=== PATIENT | female | born 1970 | race Asian ===

== ENCOUNTER 2017-02-01 14:32 | Emergency (ER) | payer OTHER ==
[~2017-02-01] VITALS: Ht 154.9 cm; Wt 56.0 kg
[~2017-02-01 14:32] MED LIST: MULT-7 PO; OMEG-135 PO
[2017-02-01 14:37] VITALS: Ht 154.9 cm; Wt 56.0 kg
[2017-02-01] MEDS ORDERED: DICLOFENAC SODIUM 37.5 MG/ML VIAL IV STA (16:33)
[2017-02-01 16:54] LABS: ADD SCAN DIFF NO
[2017-02-01 17:15] LABS: BASOPHILS % 0.4 % (0.0-2.0); EOSINOPHILS # 0.1 10^3/ul (0.0-0.5); HEMATOCRIT 40.3 % (37.0-47.0); HEMOGLOBIN 13.3 g/dl (12.0-16.0); LYMPHOCYTES # 2.8 10^3/ul (0.8-2.9); LYMPHOCYTES % 29.9 % (15.0-51.0); MEAN CORPUSCULAR HEMOGLOBIN 29.4 pg (29.0-33.0); MEAN CORPUSCULAR VOLUME 89.2 fl (82.0-101.0); MEAN PLATELET VOLUME 8.7 fl (7.4-10.4); MONOCYTE # 0.5 10^3/ul (0.3-0.9); MONOCYTES % 4.9 % (0.0-11.0); NEUTROPHIL # 5.9 10^3/ul (1.6-7.5); NEUTROPHILS % 63.6 % (39.0-77.0); PLATELET COUNT 353 10^3/UL (140-415); RED BLOOD COUNT 4.52 10^6/ul (4.20-5.40); RED CELL DISTRIBUTION WIDTH 12.4 % (11.5-14.5); WHITE BLOOD COUNT 9.3 10^3/ul (4.8-10.8)
[2017-02-01 17:18] LABS: CHLORIDE 102 mmol/L (97-110); POTASSIUM 3.6 mmol/L (3.5-5.1); SODIUM 142 mmol/L (135-144)
[2017-02-01 17:20] LABS: CREATININE 0.57 mg/dl (0.44-1.00)
[2017-02-01 17:21] LABS: ANION GAP 18 (8-16); BLOOD UREA NITROGEN 11 mg/dl (7-20); CALCIUM 9.3 mg/dl (8.4-10.2); CARBON DIOXIDE 26 mmol/L (21-31); GLUCOSE 122 mg/dl (70-220)
[2017-02-01] MEDS ORDERED: SOD CHLORIDE 0.9% 100 ML ONE (17:32)
[2017-02-01] MEDS ORDERED: IOHEXOL 100 ML ONE (17:32)
[2017-02-01 17:39] LABS: TROPONIN-I < 0.012 ng/ml (0.00-0.12)
--- NOTE | 2017-02-01 18:19 | RADRPT ---
PROCEDURE: CT Pulmonary Angiogram. CLINICAL INDICATION: Chest pain and shortness of breath. TECHNIQUE: CT pulmonary angiogram and a CT scan of the chest with contrast was performed. The pat ient was scanned following the uncomplicated intravenous administration of 100 cc of Omnipaque-350 i ntravenous contrast. 2-D coronal reformatted images were obtained from the axial source images. In addition, 3-D post processing was performed. Total exam DLP is 201.60 mGy-cm. CTDIvol is 35.21 mG y. One or more of the following dose reduction techniques were used: Automated exposure control, ad justment of the mA and/or kV according to patient size, use of iterative reconstruction technique. COMPARISON: None available. FINDINGS: The pulmonary arteries are normal with no filling defect or lack of enhancement to suggest pulmonary artery embolism. The lungs are clear. There is no pulmonary airspace or interstitial disease. There is no pulmonary nodule or mass lesion. There is no pneumothorax. There is no mediastinal or hilar lymphadenopathy or mass. There is no pleural effusion. There is no pericardial effusion. The thoracic aorta is normal with no aneurysm or dissection. The left vertebral artery appears to ar ise directly from the aortic arch, a normal variant. Images through the upper abdomen demonstrate normal visualized portions of the liver, spleen, and ad renals. The osseous structures are normal with no fracture or lytic lesion. IMPRESSION: 1. Normal CT pulmonary angiogram with no evidence of pulmonary artery embolism. 2. The left vertebral artery may arise arising from the aortic arch, a normal variant. 3. Otherwise unremarkable CT angiogram of the pulmonary arteries and CT scan of the chest. RPTAT: QQ .Horace Borja MD, Date Time Electronically viewed and signed by .Horace Borja MD, MD on 02/01/2017 18:18 .R/
[2017-02-01] MEDS ORDERED: IBUP800T25 PO (18:46)
--- NOTE | 2017-02-01 18:52 | ERD ---
ER Documentation Chief Complaint Date/Time DATE: 02/01/17 TIME: 18:48 Chief Complaint LT SIDE RIB CAGE PAIN RADIATING TO BACK X 2 WEEKS , SOB , DIZZINESS TODAY HPI This is a 46-year-old female complains of 3 years of left rib pain. She complains of pain located at the left costosternal margin around rib 5 or 6 that radiates around to the left costovertebral area. 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 She says the pain is worse when she raises her moves her left arm. Pain is described as sharp worse with movement as stated and better with rest. She states this morning she woke up and get out of bed she became suddenly short of breath for about 60 seconds. She states she had no chest pressure no other chest discomfort than stated above. No diaphoresis she has some slight palpitations no near syncope no headache no numbness or weakness. She says she was not having a panic attack at that time. She has had no shortness of breath since ROS All systems reviewed and are negative except as per history of present illness. Medications Home Meds Active Scripts Ibuprofen* (Motrin*) 800 Mg Tab, 800 MG PO Q6H Y for PAIN AND OR ELEVATED TEMP, #30 TAB Prov:MATY PEARSON DO 02/01/17 Reported Medications Fish Oil* (Fish Oil*) 1,000 Mg Cap, 1000 MG PO DAILY, CAP 06/28/14 Multivitamins (Daily Multiple Vitamin) 1 Tab Tablet, 1 TAB PO DAILY, TAB 06/28/14 Allergies Allergies: Coded Allergies: No Known Allergy (Unverified , 06/28/14) PMhx/Soc History of Surgery: Yes () Anesthesia Reaction: No Hx Neurological Disorder: No Hx Respiratory Disorders: No Hx Cardiac Disorders: No Hx Psychiatric Problems: No Hx Miscellaneous Medical Probl: No Hx Alcohol Use: No Hx Substance Use: No Hx Tobacco Use: No Smoking Status: Never smoker FmHx Family History: No coronary disease Physical Exam Vitals Vital Signs Date Time Temp Pulse Resp B/P Pulse Ox O2 Delivery O2 Flow Rate FiO2 02/01/17 16:30 98.1 79 18 124/60 100 Room Air 02/01/17 14:37 98.1 102 18 137/85 98 Physical Exam Const: Well-developed, well-nourished Head: Atraumatic, normocephalic Eyes: Normal Conjunctiva, PERRLA, EOMI, normal sclera, no nystagmus ENT: Normal External Ears, Nose and Mouth, moist mucus membranes. Neck: Full range of motion. No meningismus, no lymphadenopathy. Resp: Clear to auscultation bilaterally, no wheezing, rhonchi, rales Cardio: Regular rate and rhythm, no murmurs, S1 S2 present, reproducible chest tenderness at the costo sternal margin rib 5 and 6 anteriorly and posteriorly. Pain is reproducible to palpation in the right and range of motion. Pain is also reproducible by pushing on the posterior rib cage in the left will induce pain in the left anterior rib cage. Abd: Soft, non tender x 4, non distended. Normal bowel sounds, no guarding or rebound, no pulsitile abdominal masses or bruits Skin: No petechiae or rashes, no ecchymosis , no maculopapular rash Back: No midline or flank tenderness Ext: No cyanosis, or edema, FROM x 4, normal inspection, neurovascularly intact x 4 Neur: Awake and alert, STR 5/5 x 4, sensation intact x 4, no focal findings, cerebellum intact Psych: Normal Mood and Affect Result Diagram: 02/01/17 1641 02/01/17 1641 Results 24 hrs Laboratory Tests Test 02/01/17 16:41 White Blood Count 9.310^3/ul Red Blood Count 4.5210^6/ul Hemoglobin 13.3g/dl Hematocrit 40.3% Mean Corpuscular Volume 89.2fl Mean Corpuscular Hemoglobin 29.4pg Mean Corpuscular Hemoglobin Concent 33.0g/dl Red Cell Distribution Width 12.4% Platelet Count 10597^3/UL Mean Platelet Volume 8.7fl Neutrophils % 63.6% Lymphocytes % 29.9% Monocytes % 4.9% Eosinophils % 1.0% Basophils % 0.4% Nucleated Red Blood Cells % 0.0/100WBC Neutrophils # 5.910^3/ul Lymphocytes # 2.810^3/ul Monocytes # 0.510^3/ul Eosinophils # 0.110^3/ul Basophils # 0.010^3/ul Nucleated Red Blood Cells # 0.010^3/ul Sodium Level 142mmol/L Potassium Level 3.6mmol/L Chloride Level 102mmol/L Carbon Dioxide Level 26mmol/L Anion Gap 18 Blood Urea Nitrogen 11mg/dl Creatinine 0.57mg/dl Glucose Level 122mg/dl Calcium Level 9.3mg/dl Troponin I < 0.012ng/ml Current Medications Medications (Trade) Dose Ordered Sig/Amy Route PRN Reason Start Time Stop Time Status Last Admin Dose Admin Diclofenac Sodium (Dyloject) 37.5 mg ONCE STAT IV 02/01/17 16:33 02/01/17 16:37 DC 02/01/17 16:48 IV Flush 10 ml 10 ml STK-MED ONCE .ROUTE 02/01/17 17:32 02/01/17 17:33 DC Sodium Chloride 100 ml @ ud STK-MED ONCE .ROUTE 02/01/17 17:32 02/01/17 17:33 DC Iohexol (Omnipaque) 100 ml @ ud STK-MED ONCE .ROUTE 02/01/17 17:32 02/01/17 17:33 DC Procedures/MDM PROCEDURE: CT Pulmonary Angiogram. CLINICAL INDICATION: Chest pain and shortness of breath. TECHNIQUE: CT pulmonary angiogram and a CT scan of the chest with contrast was performed. The patient was scanned following the uncomplicated intravenous administration of 100 cc of Omnipaque-350 intravenous contrast. 2-D coronal reformatted images were obtained from the axial source images. In addition, 3- D post processing was performed. Total exam DLP is 201.60 mGy-cm. CTDIvol is 35.21 mGy. One or more of the following dose reduction techniques were used: Automated exposure control, adjustment of the mA and/or kV according to patient size, use of iterative reconstruction technique. COMPARISON: None available. FINDINGS: The pulmonary arteries are normal with no filling defect or lack of enhancement to suggest pulmonary artery embolism. The lungs are clear. There is no pulmonary airspace or interstitial disease. There is no pulmonary nodule or mass lesion. There is no pneumothorax. There is no mediastinal or hilar lymphadenopathy or mass. There is no pleural effusion. There is no pericardial effusion. The thoracic aorta is normal with no aneurysm or dissection. The left vertebral artery appears to arise directly from the aortic arch, a normal variant. Images through the upper abdomen demonstrate normal visualized portions of the liver, spleen, and adrenals. The osseous structures are normal with no fracture or lytic lesion. IMPRESSION: 1. Normal CT pulmonary angiogram with no evidence of pulmonary artery embolism. 2. The left vertebral artery may arise arising from the aortic arch, a normal variant. 3. Otherwise unremarkable CT angiogram of the pulmonary arteries and CT scan of the chest. RPTAT: QQ .Horace Borja MD, Date Time Electronically viewed and signed by .Horace Borja MD, on 02/01/2017 18:18 .R/ CC: MATY PEARSON DO EKG: Rate/Rhythm: Sinus tachycardia,NL intervals QRS, ST, QT: NORMAL [place], QRS, QT] Impression: Sinus tachycardia Patient clearly has musculoskeletal rib pain as a source of her chest pain. There is no evidence of PE pneumonia aortic pathology as the source of her shortness of breath. She states she has had a cough but did not have a cough prior to these episodes I do not think it is bronchospasm. It is possible its anxiety. Patient does seem a bit anxious that she has a cardiac problem. We will discharge home with Motrin and observation. Departure Diagnosis: Primary Impression: Dyspnea Dyspnea type: unspecified Qualified Code: R06.00 - Dyspnea, unspecified type Additional Impression: Chest wall pain Condition: Stable Patient Instructions: Chest Wall Pain, Costochondritis, Dyspnea MATY PEARSON DO Feb 01, 2017 18:52
[2017-02-01 19:00] VITALS: BP 110/63; PULSE 80; RESP 14; TEMP 98.1
== END 2017-02-01 19:07 | disposition home or self-care (01) ==
LOC: E/R 14:32
DX: R06.00 Dyspnea, unspecified (principal); R07.89 Other chest pain
CPT/HCPCS: 36415; 71275; 80048; 84484; 85025; 93005; 96374; Q9967; Z7502; Z7610